=== PATIENT | male | born 1940 | race Caucasian/White ===

== ENCOUNTER 2019-07-16 22:16 | Emergency (ER) | payer MEDICARE, MEDICAID ==
[2019-07-16] MEDS ORDERED: amLODIPine TAB* 5 MG PO ONE (23:30)
[2019-07-16] MEDS ORDERED: Labetalol TAB* 300 MG PO ONE (23:33)
[2019-07-16] MEDS ORDERED: hydrALAZINE TAB* 25 MG PO ONE (23:33)
--- NOTE | 2019-07-17 00:38 | ED ---
Throat Pain/Nasal Congestion - HPI Summary HPI Summary: This patient is an 79 year old M presenting to [facility] with a chief complaint of epistaxis since 2209 on 07/16/19. Patient reports hx of a previous episode of epistaxis years ago, noting that he required medical attention for it. Patient states that he has not taken his night dose of BP medication (Amlodipine, Hydralazine, and Labetalol). The patient rates the pain 0/10 in severity per ED triage. - History of Current Complaint Chief Complaint: EDEpistaxis Time Seen by Provider: 07/16/19 23:16 Hx Obtained From: Patient Onset/Duration: Gradual Onset - 210907/16/19 Associated Signs And Symptoms: Positive: Nasal Discharge - bleeding Cough: None Related History: Other (Noted In Comments) - previous nose bleed - Allergies/Home Medications Allergies/Adverse Reactions: Allergies Allergy/AdvReac Type Severity Reaction Status Date / Time enalapril Allergy Anaphylatic Verified 07/16/19 22:19 Shock Home Medications: Home Medications Allopurinol TAB* [Zyloprim 300 MG TAB*] 300 mg PO DAILY 07/16/19 [History Confirmed 07/16/19] Aspirin 81 mg CHEW TAB* 81 mg PO DAILY 07/16/19 [History Confirmed 07/16/19] Eplerenone [Inspra] 25 mg PO DAILY 07/16/19 [History Confirmed 07/16/19] Finasteride TAB* [Proscar TAB*] 5 mg PO DAILY 07/16/19 [History Confirmed ] Hydrochlorothiazide TAB* [Hydrodiuril TAB*] 12.5 mg PO DAILY 07/16/19 [History Confirmed 07/16/19] Labetalol TAB* [Trandate TAB*] 300 mg PO BID 07/16/19 [History Confirmed ] Losartan TAB* [Cozaar TAB*] 100 mg PO DAILY 07/16/19 [History Confirmed 07/16/19 ] Montelukast Sodium TAB* [Singulair 10 MG TAB*] 10 mg PO DAILY 07/16/19 [History Confirmed 07/16/19] Tamsulosin CAP* [Flomax CAP*] 0.4 mg PO BID 07/16/19 [History Confirmed 07/16/19 ] amLODIPine TAB* [Norvasc 5 mg TAB*] 5 mg PO BID 07/16/19 [History Confirmed ] hydrALAZINE TAB* [Apresoline TAB*] 12.5 mg PO BID 07/16/19 [History Confirmed ] metFORMIN* [Glucophage 500 MG TAB *] 500 mg PO BID 07/16/19 [History Confirmed 07/16/19] PMH/Surg Hx/FS Hx/Imm Hx Sensory History: Denies: Hx Legally Blind, Hx Deafness Opthamlomology History: Denies: Hx Legally Blind EENT History: Denies: Hx Deafness - Immunization History Immunizations Up to Date: Yes Infectious Disease History: No Infectious Disease History: Denies: Traveled Outside the [place] in Last 30 Days - Family History Known Family History: Negative: Blood Disorder - Social History Alcohol Use: Rare Substance Use Type: Reports: None Smoking Status (MU): Never Smoked Tobacco Review of Systems Negative: Fever - per inital vitals Positive: Epistaxis All Other Systems Reviewed And Are Negative: Yes Physical Exam - Summary Physical Exam Summary: VITAL SIGNS: Reviewed. GENERAL: Patient is a well-developed and nourished MALE who is lying comfortable in the stretcher. Patient is not in any acute respiratory distress. HEAD AND FACE: No signs of trauma. No ecchymosis, hematomas or skull depressions. No sinus tenderness. Fresh area of bleeding at left nare. EYES: PERRLA, EOMI x 2, No injected conjunctiva, no nystagmus. EARS: Hearing grossly intact. Ear canals and tympanic membranes are within normal limits. MOUTH: Oropharynx within normal limits. NECK: Supple, trachea is midline, no adenopathy, no JVD, no carotid bruit, no c- spine tenderness, neck with full ROM CHEST: Symmetric, no tenderness at palpation LUNGS: Clear to auscultation bilaterally. No wheezing or crackles. CVS: Regular rate and rhythm, S1 and S2 present, no murmurs or gallops appreciated. ABDOMEN: Soft, non-tender. No signs of distention. No rebound no guarding, and no masses palpated. Bowel sounds are normal. EXTREMITIES: FROM in all major joints, Bilateral lower extremity edema, no cyanosis or clubbing. NEURO: Alert and oriented x 3. No acute neurological deficits. Speech is normal and follows commands. SKIN: Dry and warm Triage Information Reviewed: Yes Vital Signs On Initial Exam: Initial Vitals Temp Pulse Resp BP Pulse Ox 98.8 F 92 18 156/90 95 07/16/19 22:16 07/16/19 22:16 07/16/19 22:16 07/16/19 22:16 07/16/19 22:16 Vital Signs Reviewed: Yes Diagnostics - Vital Signs Vital Signs Temp Pulse Resp BP Pulse Ox 07/17/19 00:34 166/86 07/17/19 00:18 73 159/87 95 07/17/19 00:00 83 96 07/16/19 23:48 78 171/87 95 07/16/19 23:18 79 172/94 96 07/16/19 22:16 98.8 F 92 18 156/90 95 - Laboratory Lab Statement: Any lab studies that have been ordered have been reviewed, and results considered in the medical decision making process. EENT Course/Dx - Course Course Of Treatment: This patient is an 79 year old M presenting to [facility] with a chief complaint of epistaxis since 2209 on 07/16/19. Patient reports hx of a previous episode of epistaxis years ago, noting that he required medical attention for it. Patient states that he has not taken his night dose of BP medication (Amlodipine, Hydralazine, and Labetalol). Physical Exam Findings - Fresh area of bleeding at left nare. Bilateral lower extremity edema. In the ED course the patient was given Norvasc Tab 5 mg PO, Apresoline 12.5 mg PO, Trandate Tab 300 mg PO. Patient will be discharged home and follow up with Dr. Castro ENT in 1 day. The patient is agreeable with this plan. - Diagnoses Provider Diagnoses: Epistaxis Discharge ED - Sign-Out/Discharge Documenting (check all that apply): Patient Departure - discharge Patient Received Moderate/Deep Sedation with Procedure: No - Discharge Plan Condition: Stable Disposition: HOME Patient Education Materials: Nosebleed (ED) Referrals: Dhiraj Castro MD [Medical Doctor] - 1 Day Additional Instructions: PLEASE RETURN TO THE ED IMMEDIATELY FOR WORSENING OR CONCERNING SYMPTOMS. FOLLOW UP WITH ENT DOCTOR WITHIN 1 DAYS. - Attestation Statements Document Initiated by Scribe: Yes Documenting Scribe: Marcelle Felix and Tyrel Morfin Provider For Whom Scribe is Documenting (Include Credential): Dr. Willian Miles MD Scribe Attestation: I, Marcelle Felix and Tyrel Morfin, scribed for Dr. Willian Miles MD on 07/17/19 at 0307. Status of Scribe Document: Ready
[2019-07-17 00:58] VITALS: BP 166/92
== END 2019-07-17 00:39 | disposition home or self-care (01) ==
LOC: ED 22:16
DX: R04.0 Epistaxis (principal); Z79.82 Long term (current) use of aspirin; Z79.899 Other long term (current) drug therapy
CPT/HCPCS: 99283; A9270-GY